=== PATIENT | male | born 1965 | race African-American/Black ===

== ENCOUNTER 2016-12-05 19:23 | Inpatient (IN) | payer MEDICARE, MEDICAID ==
[~2016-12-05] VITALS: Ht 167.6 cm; Wt 86.6 kg
[~2016-12-05 19:23] MED LIST: EMTR1TAB11 PO; IOHEXOL-300 100 ML BOTTLE ONE; SODIUM CHLORIDE 0.9% 10ML VIAL ONE
[2016-12-05] MEDS ORDERED: ONDANSETRON HCL 4MG/2ML VIAL IV STA (20:37)
[2016-12-05] MEDS ORDERED: SODIUM CHLORIDE 0.9% 1,000 ML IV ONE (20:37)
[2016-12-05] MEDS ORDERED: MORPHINE SULFATE 4 MG/ML CPJ (NOT FOR IM USE) IV STA (20:37)
[2016-12-05] MEDS ORDERED: LEVOFLOXACIN 750MG PREMIX 150 ML IV ONE (20:45)
[2016-12-05 21:12] LABS: HEMATOCRIT. 40.3 % (42.0-52.0); HEMOGLOBIN. 13.3 g/dL (14.0-18.0); MEAN CORPUSCULAR HEMOGLOBIN 27.3 pg (28.0-32.0); MEAN CORPUSCULAR VOLUME 82.7 fL (80.0-94.0); MEAN PLATELET VOLUME 8.4 fl (7.4-10.4); PLATELET 218 x1000/uL (130-400); RED BLOOD CELL COUNT 4.87 mill/uL (4.7-6.1); RED CELL DISTRIBUTION WIDTH 14.3 % (11.6-14.6)
[2016-12-05 21:15] LABS: CHLORIDE 104 mEq/L (98-107); INR 1.1; PROTHROMBIN TIME 11.8 sec (9.4-11.6)
[2016-12-05 21:20] LABS: CARBON DIOXIDE 23 mEq/L (21-32)
[2016-12-05 21:24] LABS: TROPONIN I < 0.02 ng/mL (0.00-0.04)
[2016-12-05 21:32] LABS: ATYPICAL LYMPHOCYTES 1; PLATELET ESTIMATE NORMAL
[2016-12-05 23:23] LABS: CLARITY URINE CLEAR (CLEAR); COLOR URINE YELLOW (YELLOW); GLUCOSE URINE NEGATIVE (NEGATIVE); KETONES URINE NEGATIVE (NEGATIVE); LEUKOCYTE ESTERASE URINE NEGATIVE (NEGATIVE); NITRITE URINE NEGATIVE (NEGATIVE); OCCULT BLOOD URINE NEGATIVE (NEGATIVE); PROTEIN URINE TRACE (NEGATIVE); SPECIFIC GRAVITY URINE 1.021 (1.005-1.030)
[2016-12-06] MEDS ORDERED: MORPHINE SULFATE 4 MG/ML CPJ (NOT FOR IM USE) IV ONE (00:45)
[2016-12-06] MEDS ORDERED: ONDANSETRON HCL 4MG/2ML VIAL IV ONE (00:45)
[2016-12-06 01:50] VITALS: BP 114/65
[2016-12-06 04:00] VITALS: BP 136/61
[2016-12-06] MEDS ORDERED: VANCOMYCIN 1,750 MG in DEXT 5% WATER 500 ML IV SCH (06:00)
[2016-12-06] MEDS: PIPERACILLIN/TAZ 3.375G PREMIX 50 ML IV SCH ×4 (06:00→23:41)
[2016-12-06 08:00] VITALS: BP 101/57
[2016-12-06] MEDS ORDERED: ACETAMINOPHEN 325MG TABLET PO PRN (09:30)
[2016-12-06 12:00] VITALS: BP 95/50
[2016-12-06] MEDS: SODIUM CHLORIDE 0.45% 1,000 ML IV SCH ×2 (13:01→20:51)
[2016-12-06] MEDS: HYDROCODONE/ACETAMINOPHEN 5/325MG TABLET PO PRN ×2 (13:38→18:45)
[2016-12-06 16:00] VITALS: BP 95/59
[2016-12-06 16:04] LABS: *AMPHETAMINES SCREEN URINE NEGATIVE (NEGATIVE); *BARBITURATES SCREEN URINE NEGATIVE (NEGATIVE); *BENZODIAZEPINES SCREEN URINE NEGATIVE (NEGATIVE); *COCAINE SCREEN URINE NEGATIVE (NEGATIVE); CANNABINOID URINE SCREEN NEGATIVE (NEGATIVE); METHADONE URINE SCREEN NEGATIVE (NEGATIVE); OPIATES URINE SCREEN PRESUMTIVE POSITIVE (NEGATIVE); PHENCYCLIDINE URINE SCREEN NEGATIVE (NEGATIVE)
[2016-12-06] MEDS ORDERED: TRAMADOL 50MG TABLET PO PRN (16:07)
[2016-12-06] MEDS ORDERED: ONDANSETRON HCL 4MG/2ML VIAL IV PRN (16:15)
[2016-12-06 17:22] LABS: BASOPHILS % 0.5 % (0.0-2.0); EOSINOPHILS % 0.4 % (0.0-5.0); HEMATOCRIT. 38.7 % (42.0-52.0); HEMOGLOBIN. 12.7 g/dL (14.0-18.0); LYMPHOCYTES % 11.2 % (20.0-50.0); MEAN CORPUSCULAR HEMOGLOBIN 27.4 pg (28.0-32.0); MEAN CORPUSCULAR VOLUME 83.3 fL (80.0-94.0); MEAN PLATELET VOLUME 8.6 fl (7.4-10.4); MONOCYTES % 8.1 % (2.0-8.0); NEUTROPHILS % 79.8 % (40.0-76.0); PLATELET 190 x1000/uL (130-400); RED BLOOD CELL COUNT 4.65 mill/uL (4.7-6.1); RED CELL DISTRIBUTION WIDTH 14.5 % (11.6-14.6)
[2016-12-06 17:39] LABS: CARBON DIOXIDE 27 mEq/L (21-32); CHLORIDE 104 mEq/L (98-107)
[2016-12-06 20:00] VITALS: BP 110/69
[2016-12-06] MEDS: MORPHINE SULFATE 4 MG/ML CPJ (NOT FOR IM USE) IV PRN (20:50)
[2016-12-07] VITALS: BP 112/65
[2016-12-07 04:36] VITALS: BP 125/63
[2016-12-07] MEDS: PIPERACILLIN/TAZ 3.375G PREMIX 50 ML IV SCH ×3 (05:25→16:59)
[2016-12-07] MEDS: MORPHINE SULFATE 4 MG/ML CPJ (NOT FOR IM USE) IV PRN (05:33)
[2016-12-07] MEDS: SODIUM CHLORIDE 0.45% 1,000 ML IV SCH (06:17)
[2016-12-07 08:00] VITALS: BP 111/52
[2016-12-07] MEDS: VANCOMYCIN 1250MG in DEXTROSE 5% WATER 250ML IV SCH (08:51)
[2016-12-07 12:00] VITALS: BP 120/68
[2016-12-07] MEDS: DAPSONE 100MG TABLET PO SCH (15:01)
[2016-12-07] MEDS ORDERED: CEPH-569 PO (16:22)
[2016-12-07] MEDS ORDERED: DAPS100T PO (16:49)
[2016-12-07 17:31] LABS: BASOPHILS % 0.3 % (0.0-2.0); EOSINOPHILS % 1.3 % (0.0-5.0); HEMATOCRIT. 36.2 % (42.0-52.0); LYMPHOCYTES % 15.6 % (20.0-50.0); MEAN CORPUSCULAR HEMOGLOBIN 27.2 pg (28.0-32.0); MEAN CORPUSCULAR VOLUME 82.5 fL (80.0-94.0); MEAN PLATELET VOLUME 9.2 fl (7.4-10.4); MONOCYTES % 10.8 % (2.0-8.0); PLATELET 193 x1000/uL (130-400); RED BLOOD CELL COUNT 4.39 mill/uL (4.7-6.1); RED CELL DISTRIBUTION WIDTH 14.4 % (11.6-14.6)
[2016-12-07 17:43] LABS: CARBON DIOXIDE 28 mEq/L (21-32); CHLORIDE 104 mEq/L (98-107); CREATINE KINASE 235 IU/L (39-308)
[2016-12-07 20:15] VITALS: BP 111/58
[2016-12-08 00:30] VITALS: BP 122/67
[2016-12-08] MEDS: PIPERACILLIN/TAZ 3.375G PREMIX 50 ML IV SCH ×5 (00:36→23:16)
[2016-12-08] MEDS: MORPHINE SULFATE 4 MG/ML CPJ (NOT FOR IM USE) IV PRN ×3 (00:52→11:45)
[2016-12-08 04:00] VITALS: BP 107/80
[2016-12-08] MEDS: SODIUM CHLORIDE 0.45% 1,000 ML IV SCH ×3 (06:17→23:15)
[2016-12-08 08:00] VITALS: BP 109/63
[2016-12-08] MEDS: DAPSONE 100MG TABLET PO SCH (08:53)
[2016-12-08] MEDS: VANCOMYCIN 1250MG in DEXTROSE 5% WATER 250ML IV SCH (08:53)
[2016-12-08 12:01] VITALS: BP 109/70
[2016-12-08 16:00] VITALS: BP 109/53
[2016-12-08] MEDS ORDERED: IBUPROFEN 400MG TABLET PO PRN (16:45)
[2016-12-08 20:00] VITALS: BP 115/61
[2016-12-08] MEDS: HYDROCODONE/ACETAMINOPHEN 5/325MG TABLET PO PRN (21:17)
[2016-12-08 21:45] LABS: BASOPHILS % 0.8 % (0.0-2.0); EOSINOPHILS % 1.3 % (0.0-5.0); HEMATOCRIT. 38.2 % (42.0-52.0); HEMOGLOBIN. 12.3 g/dL (14.0-18.0); LYMPHOCYTES % 26.6 % (20.0-50.0); MEAN CORPUSCULAR HEMOGLOBIN 26.6 pg (28.0-32.0); MEAN CORPUSCULAR VOLUME 82.3 fL (80.0-94.0); MEAN PLATELET VOLUME 8.6 fl (7.4-10.4); MONOCYTES % 11.9 % (2.0-8.0); NEUTROPHILS % 59.4 % (40.0-76.0); PLATELET 231 x1000/uL (130-400); RED BLOOD CELL COUNT 4.64 mill/uL (4.7-6.1); RED CELL DISTRIBUTION WIDTH 14.2 % (11.6-14.6)
[2016-12-08 22:01] LABS: CARBON DIOXIDE 26 mEq/L (21-32); CHLORIDE 106 mEq/L (98-107); CREATINE KINASE 229 IU/L (39-308)
[2016-12-09 04:00] VITALS: BP 122/62
[2016-12-09] MEDS: PIPERACILLIN/TAZ 3.375G PREMIX 50 ML IV SCH (06:00)
[2016-12-09] MEDS: VANCOMYCIN 1250MG in DEXTROSE 5% WATER 250ML IV SCH (08:00)
[2016-12-09 08:26] VITALS: BP 105/62
[2016-12-09] MEDS: DAPSONE 100MG TABLET PO SCH (09:00)
[2016-12-09] MEDS: SODIUM CHLORIDE 0.45% 1,000 ML IV SCH (09:15)
[2016-12-10 04:17] LABS: CHLAMYDIA TRACHOMATIS NAA Negative (Negative); NEISSERIA GONORRHOEAE NAA Negative (Negative)
== END 2016-12-09 10:10 | disposition home or self-care (01) | DRG 974 ==
LOC: ER 19:39 → EDBEDREQTM 22:56 → EDBEDREQSVC 22:56 → 6WST 22:57 → EDBEDREQ 23:01 → EDBEDREQTM 23:01 → ENRESERV 23:17
PROVIDERS: ADMIT Family Medicine; ATTEND Family Medicine
DX: B20 Human immunodeficiency virus [HIV] disease (principal); A41.9 Sepsis, unspecified organism; N17.0 Acute kidney failure with tubular necrosis; L03.90 Cellulitis, unspecified; Z79.899 Other long term (current) drug therapy
CPT/HCPCS: 36415; 71010; 73700; 74177; 76770; 80053; 80202; 80305; 81001; 82270; 82550; 83605; 84145; 84484; 85025; 85610; 86592; 87015; 87040; 87045; 87086; 87427; 87449; 87491; 87493; 87591; 87804; 89055; 93005; 96365; 96375; 96376; 99285; A4216; C1893; J1956; J2270; J2405; J2543; J3370; J7030; J7050; J7060; Q9967

== ENCOUNTER 2017-05-20 16:53 | Emergency (ER) | payer MEDICARE, MEDICAID ==
[~2017-05-20] VITALS: Ht 167.6 cm; Wt 84.0 kg
[~2017-05-20 16:53] MED LIST changes: +CEPH-569 PO; +DAPS100T PO; -IOHEXOL-300 100 ML BOTTLE ONE; -SODIUM CHLORIDE 0.9% 10ML VIAL ONE
[2017-05-20] MEDS ORDERED: KETOROLAC 30MG/ML VIAL IV STA (19:28)
[2017-05-20] MEDS ORDERED: ONDANSETRON HCL 4MG/2ML VIAL IV STA (19:28)
[2017-05-20] MEDS ORDERED: SODIUM CHLORIDE 0.9% 1,000 ML IV ONE (19:28)
[2017-05-20 20:20] LABS: BASOPHILS % 0.4 % (0.0-2.0); EOSINOPHILS % 0.9 % (0.0-5.0); HEMATOCRIT. 43.4 % (42.0-52.0); HEMOGLOBIN. 14.4 g/dL (14.0-18.0); LYMPHOCYTES % 32.3 % (20.0-50.0); MEAN CORPUSCULAR HEMOGLOBIN 26.7 pg (28.0-32.0); MEAN CORPUSCULAR VOLUME 80.8 fL (80.0-94.0); MEAN PLATELET VOLUME 8.2 fl (7.4-10.4); MONOCYTES % 12.1 % (2.0-8.0); NEUTROPHILS % 54.3 % (40.0-76.0); PLATELET 208 x1000/uL (130-400); RED BLOOD CELL COUNT 5.37 mill/uL (4.7-6.1); RED CELL DISTRIBUTION WIDTH 17.1 % (11.6-14.6)
[2017-05-20 20:22] LABS: CHLORIDE 106 mEq/L (98-107); INR 1.3; PROTHROMBIN TIME 13.5 sec (9.4-11.6)
[2017-05-20 22:18] LABS: CLARITY URINE CLEAR (CLEAR); COLOR URINE DARK YELLOW (YELLOW); KETONES URINE TRACE (NEGATIVE); LEUKOCYTE ESTERASE URINE NEGATIVE (NEGATIVE); NITRITE URINE NEGATIVE (NEGATIVE); OCCULT BLOOD URINE NEGATIVE (NEGATIVE); PROTEIN URINE NEGATIVE (NEGATIVE); SPECIFIC GRAVITY URINE 1.028 (1.005-1.030); UROBILINOGEN URINE 0.2 E.U./dL (0.2-1.0)
[2017-05-20 23:11] VITALS: BP 136/94
== END 2017-05-20 23:17 | disposition home or self-care (01) ==
LOC: ER 17:40
DX: R10.13 Epigastric pain (principal); R11.0 Nausea
CPT/HCPCS: 36415; 71045; 74176; 80053; 81003; 83690; 85025; 85610; 96361; 96374; 96375; 99285; J1885; J2405; J7030

== ENCOUNTER 2024-08-05 05:33 | Emergency (ER) | payer MEDICARE, MEDICAID ==
[~2024-08-05] VITALS: Ht 167.6 cm; Wt 82.0 kg
[2024-08-05 06:07] VITALS: O2SAT 99
[2024-08-05 06:13] VITALS: BP 128/82; PULSE 83; RESP 16; TEMP 36.6; O2SAT 99
[2024-08-05] MEDS ORDERED: CLIN45GE10 TP (07:09)
[2024-08-05] MEDS ORDERED: TC1C15 TP (07:25)
== END 2024-08-05 07:26 | disposition home or self-care (01) ==
LOC: ER 06:11
DX: R21 Rash and other nonspecific skin eruption (principal); Z79.899 Other long term (current) drug therapy
CPT/HCPCS: 99283